=== PATIENT | female | born 1950 | race Caucasian/White ===

== ENCOUNTER 2020-11-06 14:45 | Inpatient (IN) | payer MEDICARE, MEDICAID ==
--- NOTE | 2020-11-06 15:47 | EDM.PDOC ---
ED HPI GENERAL MEDICAL PROBLEM - General Chief Complaint: Respiratory Problem Stated Complaint: sat 85% on oxygen, confusion Time Seen by Provider: 11/06/20 15:10 Source of Information: Reports: [facility] Records History Limitations: Reports: Altered Mental Status - History of Present Illness INITIAL COMMENTS - FREE TEXT/NARRATIVE: Janna is a 70 year old female who presents to ER from [facility] with anorexia, has not eaten or drank anything for the last 3 days. Staff reports oxygen sats today were in the mid 80s on 3 liters of oxygen and did not respond to increasing that. No fevers. No vomiting or diarrhea. Has been more confused. Apparently conversation has been inappropriate to the situation. No cough. Significant other reports "she hasn't been herself for days" Onset: Gradual Duration: Day(s):, Constant Location: Reports: Generalized Associated Symptoms: Reports: Confusion, Loss of Appetite, Weakness. Denies: Chest Pain, Cough, Fever/Chills, Nausea/Vomiting, Shortness of Breath - Related Data Allergies Allergy/AdvReac Type Severity Reaction Status Date / Time No Known Allergies Allergy Verified 11/06/20 15:00 Home Meds: Home Meds ARIPiprazole [Abilify] 10 mg PO DAILY 11/06/20 [History] DULoxetine HCl [Cymbalta] 60 mg PO DAILY 11/06/20 [History] Dextroamphetamine/Amphetamine [Dextroamp-Amphet ER] 10 mg PO DAILY 11/06/20 [History] Fesoterodine Fumarate [Toviaz] 4 mg PO DAILY 11/06/20 [History] Levothyroxine 75 mcg PO DAILY 11/06/20 [History] Mag Hydrox/Aluminum Hyd/Simeth [Antacid Plus Anti-Gas Liquid] 1 dose PO QID PRN 11/06/20 [History] Metoprolol Tartrate 25 mg PO BID 11/06/20 [History] Multivitamin with Iron [Multivitamins with Iron] 1 tab PO DAILY 11/06/20 [History] Pantoprazole Sodium [Protonix] 40 mg PO DAILY 11/06/20 [History] Sennosides/Docusate Sodium [Senna Plus 8.6-50 mg Tablet] 1 tab PO DAILY 11/06/20 [History] amLODIPine Besylate [Amlodipine Besylate] 10 mg PO DAILY 11/06/20 [History] lisinopriL [Lisinopril] 20 mg PO BID 11/06/20 [History] traZODone 50 mg PO BEDTIME PRN 11/06/20 [History] Past Medical History Cardiovascular History: Reports: Hypertension Gastrointestinal History: Reports: GERD Genitourinary History: Reports: Other (See Below) Other Genitourinary History: overactive bladder Psychiatric History: Reports: Depression, Schizophrenia Endocrine/Metabolic History: Reports: Hypomagnesemia, Hypothyroidism Social & Family History - Tobacco Use Tobacco Use Status *Q: Unknown Ever Used Tobacco ED ROS GENERAL - Review of Systems Review Of Systems: See Below (obtained per residential) Constitutional: Reports: Malaise, Decreased Appetite. Denies: Fever, Chills Respiratory: Reports: Other (hypoxia). Denies: Shortness of Breath Cardiovascular: Denies: Chest Pain Endocrine: Reports: Fatigue GI/Abdominal: Denies: Abdominal Pain, Nausea, Vomiting : Reports: No Symptoms Neurological: Reports: Confusion, Weakness ED EXAM, GENERAL - Physical Exam Exam: See Below Exam Limited By: Altered Mental Status General Appearance: Alert, WD/WN, No Apparent Distress Ears: Normal External Exam, Normal TMs Nose: Normal Inspection, Normal Mucosa, No Blood Throat/Mouth: Other (mucous membranes dry, lips have crusty yellowish drainage on them) Head: Normocephalic Neck: Normal Inspection, Supple, Non-Tender Respiratory/Chest: Decreased Breath Sounds Cardiovascular: Regular Rate, Rhythm GI/Abdominal: Normal Bowel Sounds, Soft, Non-Tender Extremities: Normal Inspection, No Pedal Edema Neurological: Alert, Disoriented, Other (unable to understand speech) Skin Exam: Warm, Dry Course - Vital Signs Last Recorded V/S: Last Vital Signs Temp 97.6 F 11/06/20 14:55 Pulse 87 11/06/20 14:55 Resp 16 11/06/20 14:55 BP 104/81 11/06/20 14:55 Pulse Ox 87 L 11/06/20 14:55 - Orders/Labs/Meds Orders: Active Orders 24 hr Category Date Time Status CXR [Chest 2V] [CR] Stat Exams 11/06/20 14:50 Taken COVID-19/FLU A+B [MOLEC] Stat Lab 11/06/20 15:10 Received UA W/MICROSCOPIC [URIN] Stat Lab 10/02/21 14:51 Ordered Labs: Laboratory Tests 11/06/20 11/06/20 Range/Units 15:10 15:10 WBC 8.1 (4.0-11.0) 10^3/uL RBC 4.01 (4.00-5.50) x10^6/uL Hgb 11.7 L (12.0-16.0) g/dL Hct 39.6 (37.0-47.0) % MCV 98.8 H (83.0-97.0) fL MCH 29.2 (27.0-32.0) pg MCHC 29.5 L (32.0-36.0) g/dL RDW Coeff of Barrie 14.7 (11.0-15.0) % Plt Count 170 (150-400) 10^3/uL Immature Gran % (Auto) 0.5 (0.0-4.9) % Neut % (Auto) 80.5 H (41-71) % Lymph % (Auto) 11.7 L (24-44) % [place] % (Auto) 6.1 (0-10) % Eos % (Auto) 1.0 (0-6) % Baso % (Auto) 0.2 (0-1) % Neut # (Auto) 6.51 (1.80-8.00) x10^3/uL Lymph # (Auto) 0.95 (0.60-5.00) 10^3/uL [place] # (Auto) 0.49 (0.00-1.50) 10^3/uL Eos # (Auto) 0.08 (0.00-1.50) 10^3/uL Baso # (Auto) 0.02 (0.00-0.50) 10^3/uL Immature Gran # (Auto) 0.04 (0.00-0.49) 10^3/uL Sodium 138 (136-145) mEq/L Potassium 5.2 H (3.5-5.0) mEq/L Chloride 98 (98-106) mEq/L Carbon Dioxide 37 H (21-32) mmol/L BUN 54 H (7-18) mg/dL Creatinine 3.3 H* (0.6-1.0) mg/dL Est Cr Clr Drug Dosing 14.09 mL/min Estimated GFR (MDRD) 14 L (>=60) mL/min Glucose 100 H (75-99) mg/dL Calcium 8.7 (8.4-10.1) mg/dL Total Bilirubin 0.4 (0.0-1.0) mg/dL AST 23 (15-37) U/L ALT 25 (12-78) U/L Alkaline Phosphatase 108 (46-116) U/L C-Reactive Protein 2.0 H (0.2-0.8) mg/dL Total Protein 7.5 (6.4-8.2) g/dL Albumin 3.4 (3.4-5.0) g/dL - Re-Assessments/Exams Free Text/Narrative Re-Assessment/Exam: 11/06/20 15:53 Significant other here. Relates she has "been off for the last several days". Does have history of schizophrenia and will go through phases like this. No noted signs of infection, still waiting on urine but WBC is normal, CRP 2. Creatinine is high at 3.3, BUN 54. Will admit observation and rehydrate with IV fluids and repeat labs in am. Departure - Departure Time of Disposition: 15:54 Disposition: Refer to Observation Condition: Fair Clinical Impression: DALE (acute kidney injury) - Discharge Information *PRESCRIPTION DRUG MONITORING PROGRAM REVIEWED*: No *COPY OF PRESCRIPTION DRUG MONITORING REPORT IN PATIENT TRENT: No Referrals: Min Calabrese MD [Primary Care Provider] - Sepsis Event Note (ED) - Evaluation Sepsis Screening Result: No Definite Risk - Focused Exam Vital Signs: Vital Signs Temp Pulse Resp BP Pulse Ox 11/06/20 14:55 97.6 F 87 16 104/81 87 L - Problem List & Annotations (1) DALE (acute kidney injury) SNOMED Code(s): 15439844, 37614752 Code(s): N17.9 - ACUTE KIDNEY FAILURE, UNSPECIFIED Status: Acute Priority: High Current Visit: Yes (2) History of schizophrenia SNOMED Code(s): 740649675 Code(s): Z86.59 - PERSONAL HISTORY OF OTHER MENTAL AND BEHAVIORAL DISORDERS Status: Acute Priority: High Current Visit: Yes (3) Hypoxemia SNOMED Code(s): 003899712 Code(s): R09.02 - HYPOXEMIA Status: Acute Priority: High Current Visit: Yes - Problem List Review Problem List Initiated/Reviewed/Updated: Yes - My Orders Last 24 Hours: My Active Orders 11/06/20 14:50 CXR [Chest 2V] [CR] Stat 11/06/20 14:51 UA W/MICROSCOPIC [URIN] Stat 11/06/20 15:10 COVID-19/FLU A+B [MOLEC] Stat - Assessment/Plan Admission H&P: Please use this note as an admission H&P Last 24 Hours: My Active Orders 11/06/20 14:50 CXR [Chest 2V] [CR] Stat 11/06/20 14:51 UA W/MICROSCOPIC [URIN] Stat 11/06/20 15:10 COVID-19/FLU A+B [MOLEC] Stat Assessment:: DALE Hypoxemia History of schizophrenia Plan: Admit observation. IV fluids. Repeat labs in am. Obtain urine as able.
[2020-11-06 15:48] LABS: CORONAVIRUS COVID-19 NAA NEGATIVE (NEGATIVE)
[2020-11-06] MEDS ORDERED: Ondansetron 4 MG/2 ML SDV IV PRN (16:10)
[2020-11-06] MEDS ORDERED: Acetaminophen 325 MG Tab PO PRN (16:10)
[2020-11-06] MEDS: Sodium Chloride 0.9% 1,000 ML IV SCH ×2 (17:08→23:59)
[2020-11-06] MEDS: traZODone 50 MG Tab PO PRN (19:45)
[2020-11-06] MEDS: Lisinopril 20 MG Tab PO SCH (20:17)
[2020-11-06] MEDS: Metoprolol Tartrate 25 MG Tab PO SCH (20:17)
[2020-11-07] MEDS: Levothyroxine 150 MCG Tab PO SCH (06:44)
[2020-11-07] MEDS: Pantoprazole 40 MG Tab.CR PO SCH (06:44)
[2020-11-07] MEDS: Sodium Chloride 0.9% 1,000 ML IV SCH ×2 (08:15→16:17)
[2020-11-07] MEDS: DULoxetine 30 MG Cap PO SCH (08:16)
[2020-11-07] MEDS: Metoprolol Tartrate 25 MG Tab PO SCH ×2 (08:16→19:44)
[2020-11-07] MEDS: amLODIPine 10 MG Tab PO SCH (08:17)
[2020-11-07] MEDS: Lisinopril 20 MG Tab PO SCH ×2 (08:17→19:45)
[2020-11-07] MEDS: cefTRIAXone 1 GM Vial IVPUSH SCH (10:10)
--- NOTE | 2020-11-07 12:06 | PCM.PN ---
- General Info Date of Service: 11/07/20 Admission Dx/Problem (Free Text): DALE Subjective Update: Patient more alert today. States "is fine". Sitting up for breakfast but did not eat more than a few bites. Is afebrile. Requires 6 liters of oxygen to keep sats at 90%, chronically on 3-5 at [facility]. Offers no complaints at this time. Functional Status: Reports: Pain Controlled. Denies: Tolerating Diet, Ambulating - Review of Systems General: Reports: Weakness, Fatigue, Malaise. Denies: Fever HEENT: Denies: Headaches, Sinus Congestion, Sore Throat Pulmonary: Denies: Shortness of Breath Cardiovascular: Denies: Chest Pain Gastrointestinal: Denies: Abdominal Pain, Nausea, Vomiting Neurological: Reports: Confusion, Pre-Existing Deficit Psychiatric: Reports: Confusion, Other (history of schizophrenia) - Patient Data Vitals - Most Recent: Last Vital Signs Temp 96.2 F L 11/07/20 08:00 Pulse 80 11/07/20 08:16 Resp 20 11/07/20 08:00 BP 153/59 H 11/07/20 08:17 Pulse Ox 90 L 11/07/20 08:00 Weight - Most Recent: 182 lb 8 oz I&O - Last 24 Hours: Intake & Output 11/06/20 11/07/20 11/07/20 22:59 06:59 14:59 Intake Total 1196 1000 Output Total 400 Balance 796 1000 Lab Results Last 24 Hours: Laboratory Results - last 24 hr 11/06/20 11/06/20 11/06/20 Range/Units 15:10 15:10 15:10 WBC 8.1 (4.0-11.0) 10^3/uL RBC 4.01 (4.00-5.50) x10^6/uL Hgb 11.7 L (12.0-16.0) g/dL Hct 39.6 (37.0-47.0) % MCV 98.8 H (83.0-97.0) fL MCH 29.2 (27.0-32.0) pg MCHC 29.5 L (32.0-36.0) g/dL RDW Coeff of Barrie 14.7 (11.0-15.0) % Plt Count 170 (150-400) 10^3/uL Immature Gran % (Auto) 0.5 (0.0-4.9) % Neut % (Auto) 80.5 H (41-71) % Lymph % (Auto) 11.7 L (24-44) % [place] % (Auto) 6.1 (0-10) % Eos % (Auto) 1.0 (0-6) % Baso % (Auto) 0.2 (0-1) % Neut # (Auto) 6.51 (1.80-8.00) x10^3/uL Lymph # (Auto) 0.95 (0.60-5.00) 10^3/uL [place] # (Auto) 0.49 (0.00-1.50) 10^3/uL Eos # (Auto) 0.08 (0.00-1.50) 10^3/uL Baso # (Auto) 0.02 (0.00-0.50) 10^3/uL Immature Gran # (Auto) 0.04 (0.00-0.49) 10^3/uL Sodium 138 (136-145) mEq/L Potassium 5.2 H (3.5-5.0) mEq/L Chloride 98 (98-106) mEq/L Carbon Dioxide 37 H (21-32) mmol/L BUN 54 H (7-18) mg/dL Creatinine 3.3 H* (0.6-1.0) mg/dL Est Cr Clr Drug Dosing 14.09 mL/min Estimated GFR (MDRD) 14 L (>=60) mL/min Glucose 100 H (75-99) mg/dL Calcium 8.7 (8.4-10.1) mg/dL Total Bilirubin 0.4 (0.0-1.0) mg/dL AST 23 (15-37) U/L ALT 25 (12-78) U/L Alkaline Phosphatase 108 (46-116) U/L C-Reactive Protein 2.0 H (0.2-0.8) mg/dL Total Protein 7.5 (6.4-8.2) g/dL Albumin 3.4 (3.4-5.0) g/dL Urine Color (YELLOW) Urine Appearance (CLEAR) Urine pH (4.5-8.0) Ur Specific [place] (1.003-1.020) Urine Protein (NEGATIVE) mg/dL Urine Glucose (UA) (NEGATIVE) mg/dL Urine Ketones (NEGATIVE) mg/dL Urine Occult Blood (NEGATIVE) Urine Nitrite (NEGATIVE) Urine Bilirubin (NEGATIVE) Urine Urobilinogen (0.2-1.0) EU/dL Ur Leukocyte Esterase (NEGATIVE) Urine RBC (0-5) /HPF Urine WBC (0-5) /HPF Ur Squamous Epith Cells (NOT SEEN) /HPF Urine Bacteria (NOT SEEN) /HPF Influenza Type A RNA Negative (NEGATIVE) Influenza Type B RNA Negative (NEGATIVE) SARS-CoV-2 RNA (NUBIA) Negative (NEGATIVE) 11/06/20 11/07/20 11/07/20 Range/Units 23:09 07:24 07:24 WBC 6.2 (4.0-11.0) 10^3/uL RBC 3.60 L (4.00-5.50) x10^6/uL Hgb 10.4 L (12.0-16.0) g/dL Hct 35.4 L (37.0-47.0) % MCV 98.3 H (83.0-97.0) fL MCH 28.9 (27.0-32.0) pg MCHC 29.4 L (32.0-36.0) g/dL RDW Coeff of [place] 14.7 (11.0-15.0) % Plt Count 120 L (150-400) 10^3/uL Immature Gran % (Auto) 0.7 (0.0-4.9) % Neut % (Auto) 77.0 H (41-71) % Lymph % (Auto) 14.8 L (24-44) % [place] % (Auto) 6.2 (0-10) % Eos % (Auto) 1.0 (0-6) % Baso % (Auto) 0.3 (0-1) % Neut # (Auto) 4.74 (1.80-8.00) x10^3/uL Lymph # (Auto) 0.91 (0.60-5.00) 10^3/uL [place] # (Auto) 0.38 (0.00-1.50) 10^3/uL Eos # (Auto) 0.06 (0.00-1.50) 10^3/uL Baso # (Auto) 0.02 (0.00-0.50) 10^3/uL Immature Gran # (Auto) 0.04 (0.00-0.49) 10^3/uL Sodium 139 (136-145) mEq/L Potassium 4.7 (3.5-5.0) mEq/L Chloride 101 (98-106) mEq/L Carbon Dioxide 35 H (21-32) mmol/L BUN 51 H (7-18) mg/dL Creatinine 2.4 H (0.6-1.0) mg/dL Est Cr Clr Drug Dosing 19.37 mL/min Estimated GFR (MDRD) 20 L (>=60) mL/min Glucose 101 H (75-99) mg/dL Calcium 8.1 L (8.4-10.1) mg/dL Total Bilirubin (0.0-1.0) mg/dL AST (15-37) U/L ALT (12-78) U/L Alkaline Phosphatase (46-116) U/L C-Reactive Protein 2.3 H (0.2-0.8) mg/dL Total Protein (6.4-8.2) g/dL Albumin (3.4-5.0) g/dL Urine Color Dark yellow (YELLOW) Urine Appearance Slightly cloudy (CLEAR) Urine pH 5.0 (4.5-8.0) Ur Specific [place] >= 1.030 H (1.003-1.020) Urine Protein Trace H (NEGATIVE) mg/dL Urine Glucose (UA) Negative (NEGATIVE) mg/dL Urine Ketones Trace H (NEGATIVE) mg/dL Urine Occult Blood Negative (NEGATIVE) Urine Nitrite Negative (NEGATIVE) Urine Bilirubin Small H (NEGATIVE) Urine Urobilinogen 0.2 (0.2-1.0) EU/dL Ur Leukocyte Esterase Trace H (NEGATIVE) Urine RBC 0-5 (0-5) /HPF Urine WBC 30-40 H (0-5) /HPF Ur Squamous Epith Cells Moderate H (NOT SEEN) /HPF Urine Bacteria Few H (NOT SEEN) /HPF Influenza Type A RNA (NEGATIVE) Influenza Type B RNA (NEGATIVE) SARS-CoV-2 RNA (NUBIA) (NEGATIVE) Med Orders - Current: Current Medications Acetaminophen (Acetaminophen 325 Mg Tab) 650 mg PO Q4H PRN PRN Reason: Pain (Mild 1-3)/fever Amlodipine Besylate (Amlodipine 10 Mg Tab) 10 mg PO DAILY VERONIKA Last Admin: 11/07/20 08:17 Dose: 10 mg Documented by: Ceftriaxone Sodium (Ceftriaxone 1 Gm Vial) 1 gm IVPUSH Q24H [facility] Last Admin: 11/07/20 10:10 Dose: 1 gm Documented by: Duloxetine HCl (Duloxetine 30 Mg Cap) 60 mg PO DAILY [facility] Last Admin: 11/07/20 08:16 Dose: 60 mg Documented by: Enoxaparin Sodium (Enoxaparin 30 Mg/0.3 Ml Syringe) 30 mg SUBCUT Q24H [facility] Sodium Chloride (Normal Saline) 1,000 mls @ 125 mls/hr IV ASDIRECTED [facility] Last Admin: 11/07/20 08:15 Dose: 125 mls/hr Documented by: Levothyroxine Sodium (Levothyroxine 150 Mcg Tab) 75 mcg PO ACBRK [facility] Last Admin: 11/07/20 06:44 Dose: 75 mcg Documented by: Lisinopril (Lisinopril 20 Mg Tab) 20 mg PO BID [facility] Last Admin: 11/07/20 08:17 Dose: 20 mg Documented by: Metoprolol Tartrate (Metoprolol Tartrate 25 Mg Tab) 25 mg PO BID [facility] Last Admin: 11/07/20 08:16 Dose: 25 mg Documented by: Non-Formulary Medication (Aripiprazole [Abilify]) 10 mg PO DAILY [facility] Non-Formulary Medication (Dextroamphetamine/Amphetamine [Dextroamp-Amphet Er]) 10 mg PO DAILY [facility] Ondansetron HCl (Ondansetron 4 Mg/2 Ml Sdv) 4 mg IV Q4H PRN PRN Reason: Nausea/Vomiting Pantoprazole Sodium (Pantoprazole 40 Mg Tab.Cr) 40 mg PO ACBRK [facility] Last Admin: 11/07/20 06:44 Dose: 40 mg Documented by: Senna/Docusate Sodium (Docusate Sodium/Sennosides 50-8.6 Mg Tab) 1 tab PO DAILY [facility] Last Admin: 11/07/20 08:16 Dose: 1 tab Documented by: Trazodone HCl (Trazodone 50 Mg Tab) 50 mg PO BEDTIME PRN PRN Reason: Sleep Last Admin: 11/06/20 19:45 Dose: 50 mg Documented by: - Exam Quality Assessment: Supplemental Oxygen General: Alert, Oriented (oriented to person), Cooperative HEENT: Mucous Membr. Moist/[place] Neck: Supple Lungs: Decreased Breath Sounds Cardiovascular: Regular Rate, Regular Rhythm GI/Abdominal Exam: Normal Bowel Sounds, Soft, Non-Tender Extremities: Normal Inspection, No Pedal Edema Skin: Warm, Dry Neurological: No New Focal Deficit - Patient Data Lab Results Last 24 hrs: Laboratory Results - last 24 hr 11/06/20 11/06/20 11/06/20 Range/Units 15:10 15:10 15:10 WBC 8.1 (4.0-11.0) 10^3/uL RBC 4.01 (4.00-5.50) x10^6/uL Hgb 11.7 L (12.0-16.0) g/dL Hct 39.6 (37.0-47.0) % MCV 98.8 H (83.0-97.0) fL MCH 29.2 (27.0-32.0) pg MCHC 29.5 L (32.0-36.0) g/dL RDW Coeff of [place] 14.7 (11.0-15.0) % Plt Count 170 (150-400) 10^3/uL Immature Gran % (Auto) 0.5 (0.0-4.9) % Neut % (Auto) 80.5 H (41-71) % Lymph % (Auto) 11.7 L (24-44) % [place] % (Auto) 6.1 (0-10) % Eos % (Auto) 1.0 (0-6) % Baso % (Auto) 0.2 (0-1) % Neut # (Auto) 6.51 (1.80-8.00) x10^3/uL Lymph # (Auto) 0.95 (0.60-5.00) 10^3/uL [place] # (Auto) 0.49 (0.00-1.50) 10^3/uL Eos # (Auto) 0.08 (0.00-1.50) 10^3/uL Baso # (Auto) 0.02 (0.00-0.50) 10^3/uL Immature Gran # (Auto) 0.04 (0.00-0.49) 10^3/uL Sodium 138 (136-145) mEq/L Potassium 5.2 H (3.5-5.0) mEq/L Chloride 98 (98-106) mEq/L Carbon Dioxide 37 H (21-32) mmol/L BUN 54 H (7-18) mg/dL Creatinine 3.3 H* (0.6-1.0) mg/dL Est Cr Clr Drug Dosing 14.09 mL/min Estimated GFR (MDRD) 14 L (>=60) mL/min Glucose 100 H (75-99) mg/dL Calcium 8.7 (8.4-10.1) mg/dL Total Bilirubin 0.4 (0.0-1.0) mg/dL AST 23 (15-37) U/L ALT 25 (12-78) U/L Alkaline Phosphatase 108 (46-116) U/L C-Reactive Protein 2.0 H (0.2-0.8) mg/dL Total Protein 7.5 (6.4-8.2) g/dL Albumin 3.4 (3.4-5.0) g/dL Urine Color (YELLOW) Urine Appearance (CLEAR) Urine pH (4.5-8.0) Ur Specific [place] (1.003-1.020) Urine Protein (NEGATIVE) mg/dL Urine Glucose (UA) (NEGATIVE) mg/dL Urine Ketones (NEGATIVE) mg/dL Urine Occult Blood (NEGATIVE) Urine Nitrite (NEGATIVE) Urine Bilirubin (NEGATIVE) Urine Urobilinogen (0.2-1.0) EU/dL Ur Leukocyte Esterase (NEGATIVE) Urine RBC (0-5) /HPF Urine WBC (0-5) /HPF Ur Squamous Epith Cells (NOT SEEN) /HPF Urine Bacteria (NOT SEEN) /HPF Influenza Type A RNA Negative (NEGATIVE) Influenza Type B RNA Negative (NEGATIVE) SARS-CoV-2 RNA (NUBIA) Negative (NEGATIVE) 11/06/20 11/07/20 11/07/20 Range/Units 23:09 07:24 07:24 WBC 6.2 (4.0-11.0) 10^3/uL RBC 3.60 L (4.00-5.50) x10^6/uL Hgb 10.4 L (12.0-16.0) g/dL Hct 35.4 L (37.0-47.0) % MCV 98.3 H (83.0-97.0) fL MCH 28.9 (27.0-32.0) pg MCHC 29.4 L (32.0-36.0) g/dL RDW Coeff of [place] 14.7 (11.0-15.0) % Plt Count 120 L (150-400) 10^3/uL Immature Gran % (Auto) 0.7 (0.0-4.9) % Neut % (Auto) 77.0 H (41-71) % Lymph % (Auto) 14.8 L (24-44) % [place] % (Auto) 6.2 (0-10) % Eos % (Auto) 1.0 (0-6) % Baso % (Auto) 0.3 (0-1) % Neut # (Auto) 4.74 (1.80-8.00) x10^3/uL Lymph # (Auto) 0.91 (0.60-5.00) 10^3/uL [place] # (Auto) 0.38 (0.00-1.50) 10^3/uL Eos # (Auto) 0.06 (0.00-1.50) 10^3/uL Baso # (Auto) 0.02 (0.00-0.50) 10^3/uL Immature Gran # (Auto) 0.04 (0.00-0.49) 10^3/uL Sodium 139 (136-145) mEq/L Potassium 4.7 (3.5-5.0) mEq/L Chloride 101 (98-106) mEq/L Carbon Dioxide 35 H (21-32) mmol/L BUN 51 H (7-18) mg/dL Creatinine 2.4 H (0.6-1.0) mg/dL Est Cr Clr Drug Dosing 19.37 mL/min Estimated GFR (MDRD) 20 L (>=60) mL/min Glucose 101 H (75-99) mg/dL Calcium 8.1 L (8.4-10.1) mg/dL Total Bilirubin (0.0-1.0) mg/dL AST (15-37) U/L ALT (12-78) U/L Alkaline Phosphatase (46-116) U/L C-Reactive Protein 2.3 H (0.2-0.8) mg/dL Total Protein (6.4-8.2) g/dL Albumin (3.4-5.0) g/dL Urine Color Dark yellow (YELLOW) Urine Appearance Slightly cloudy (CLEAR) Urine pH 5.0 (4.5-8.0) Ur Specific [place] >= 1.030 H (1.003-1.020) Urine Protein Trace H (NEGATIVE) mg/dL Urine Glucose (UA) Negative (NEGATIVE) mg/dL Urine Ketones Trace H (NEGATIVE) mg/dL Urine Occult Blood Negative (NEGATIVE) Urine Nitrite Negative (NEGATIVE) Urine Bilirubin Small H (NEGATIVE) Urine Urobilinogen 0.2 (0.2-1.0) EU/dL Ur Leukocyte Esterase Trace H (NEGATIVE) Urine RBC 0-5 (0-5) /HPF Urine WBC 30-40 H (0-5) /HPF Ur Squamous Epith Cells Moderate H (NOT SEEN) /HPF Urine Bacteria Few H (NOT SEEN) /HPF Influenza Type A RNA (NEGATIVE) Influenza Type B RNA (NEGATIVE) SARS-CoV-2 RNA (NUBIA) (NEGATIVE) Result Diagrams: 11/07/20 07:24 11/07/20 07:24 Sepsis Event Note - Evaluation Sepsis Screening Result: No Definite Risk - Focused Exam Vital Signs: Vital Signs Temp Pulse Pulse Resp BP BP Pulse Ox 11/07/20 08:17 153/59 H 11/07/20 08:16 80 153/59 H 11/07/20 08:00 96.2 F L 80 20 133/59 L 90 L 11/07/20 03:16 96.0 F L 77 20 110/53 L 90 L - Problem List & Annotations (1) DALE (acute kidney injury) SNOMED Code(s): 47686053, 57079689 Code(s): N17.9 - ACUTE KIDNEY FAILURE, UNSPECIFIED Status: Acute Priority: High Current Visit: Yes (2) History of schizophrenia SNOMED Code(s): 733189726 Code(s): Z86.59 - PERSONAL HISTORY OF OTHER MENTAL AND BEHAVIORAL DISORDERS Status: Acute Priority: High Current Visit: Yes (3) Hypoxemia SNOMED Code(s): 774037582 Code(s): R09.02 - HYPOXEMIA Status: Acute Priority: High Current Visit: Yes - Problem List Review Problem List Initiated/Reviewed/Updated: Yes - My Orders Last 24 Hours: My Active Orders 11/06/20 14:50 CXR [Chest 2V] [CR] Stat 11/06/20 15:57 Resuscitation Status Routine 11/06/20 16:04 traZODone 50 mg PO BEDTIME PRN 11/06/20 16:10 Acetaminophen [TylenoL] 650 mg PO Q4H PRN Ondansetron [Zofran] 4 mg IV Q4H PRN Sodium Chloride 0.9% [Normal Saline] 1,000 ml IV ASDIRECTED 11/06/20 16:10 Patient Status [ADT] Routine Cardiac Monitoring [RC] 08,1999 Oxygen Therapy [RC] 2355 Up With Assistance [RC] .PRN Vital Signs [RC] 0000,0400,0800,1200,1600,2000 11/06/20 Dinner Regular Diet [DIET] 11/06/20 20:00 Metoprolol Tartrate [Lopressor] 25 mg PO BID lisinopriL [Prinivil] 20 mg PO BID 11/07/20 07:00 Levothyroxine 75 mcg PO ACBRK Pantoprazole [ProTONIX] 40 mg PO ACBRK 11/07/20 07:24 CULTURE URINE [RM] Routine 11/07/20 08:00 ARIPiprazole [Abilify] 10 mg PO DAILY DULoxetine [Cymbalta] 60 mg PO DAILY Dextroamphetamine/Amphetamine [Dextroamp-Amphet ER] 10 mg PO DAILY Docusate Sodium/Sennosides [Senna Plus] 1 tab PO DAILY amLODIPine [Norvasc] 10 mg PO DAILY 11/07/20 10:00 cefTRIAXone [Rocephin] 1 gm IVPUSH Q24H 11/07/20 12:00 Enoxaparin [Lovenox] 30 mg SUBCUT Q24H 11/08/20 05:11 BASIC METABOLIC PANEL,BMP [CHEM] AM C-REACTIVE PROTEIN [CHEM] AM CBC WITH AUTO DIFF [HEME] AM - Assessment Assessment:: DALE UTI History of schizophrenia - Plan Plan:: Janna is more alert today. Will continue with IV fluids, monitor oral intake. Repeat labs today show creatinine to be somewhat improved to 2.4, BUN 51. WBC remains normal at 6.2, hemoglobin 10.4. CRP 2.3. UA shows bacteria and WBCs, will cover with Rocephin, await culture report. Repeat labs in am, possibly discharge back to [facility] if continues to show improvement tomorrow.
[2020-11-07] MEDS: Enoxaparin 30 MG/0.3 ML Syringe SUBCUT SCH (12:41)
[2020-11-07] MEDS: traZODone 50 MG Tab PO PRN (19:50)
[2020-11-08] MEDS: Sodium Chloride 0.9% 1,000 ML IV SCH ×2 (00:24→10:41)
[2020-11-08] MEDS: Levothyroxine 150 MCG Tab PO SCH (06:00)
[2020-11-08] MEDS: Pantoprazole 40 MG Tab.CR PO SCH (06:00)
[2020-11-08] MEDS ORDERED: DULOXETINE 60 MG PO SCH (08:30)
[2020-11-08] MEDS ORDERED: Lisinopril 20 MG Tab **PTOM PO SCH (08:30)
[2020-11-08] MEDS: ARIPIPRAZOLE 10 MG PO SCH (09:20)
[2020-11-08] MEDS: cefTRIAXone 1 GM Vial IVPUSH SCH (10:40)
[2020-11-08] MEDS: Lisinopril 20 MG Tab PO SCH ×2 (10:52→20:46)
[2020-11-08] MEDS: Metoprolol Tartrate 25 MG Tab PO SCH ×2 (10:52→20:45)
[2020-11-08] MEDS: DULoxetine 30 MG Cap PO SCH (10:52)
[2020-11-08] MEDS: amLODIPine 10 MG Tab PO SCH (10:52)
[2020-11-08] MEDS: Non-Formulary Medication 1 Each (Aripiprazole [Abilify] 10 MG Tablet) PO SCH ×2 (10:53→20:45)
[2020-11-08] MEDS ORDERED: DEXTROAMPHETAMINE PO SCH (11:45)
[2020-11-08] MEDS ORDERED: AMPHETAMINE PO SCH (11:45)
[2020-11-08] MEDS: Enoxaparin 30 MG/0.3 ML Syringe SUBCUT SCH (11:48)
--- NOTE | 2020-11-08 14:08 | PN ---
DATE: 11/08/2020 S: Mrs. Muñoz was admitted to observation I believe 2 days ago by Stephanie for hypoxia, altered mental status. She came in and had some lab which showed an acute kidney injury. Her creatinine is up to 3. She has been getting IV fluids with some degree of relief and her creatinine is down today at 1.7. She is still not completely alert, looks fatigued and tired at times. She is chronically on anywhere from 3 to 5 L of oxygen apparently, but she has been needing anywhere from 6 to 8 via nasal cannula. Blood pressure has been trending a little on the low end and apparently the family wants her a code 2 without anything further aggressive done. O: GENERAL: Her exam today shows her to be arousable and she does answer questions, although she is very lethargic with that. NEUROLOGIC: She does not show any focal neuro deficits. NECK: Her neck veins are nondistended. LUNGS: Her lung sounds are diminished in all watkins with basilar crackles suspicious for some atelectasis. CARDIAC: Her cardiac tones appear regular. ABDOMEN: Obese, soft, and nontender. EXTREMITIES: She has no peripheral edema. LABORATORY DATA: Lab work is reviewed. Her hemoglobin and white count are stable. She does have an improvement of her creatinine to 1.7 from 3.3 on admit. The rest of her lab work looks fine. She is being treated for a UTI. ASSESSMENT: 1. SCHIZOPHRENIA, CURRENTLY ON ABILIFY. 2. CHRONIC FATIGUE, CURRENTLY ON DEXTROAMPHETAMINE. 3. ACUTE KIDNEY INJURY, IMPROVED. 4. ALTERED MENTAL STATUS. 5. HYPOXIA. P: Creatinine is better. We will slow her IV fluids down. She does have definite altered mental status compared to what I have seen when I have rounded on her once in the past at [place]. Get a CT scan of her head. Her blood pressures have been trending a little low and we have been holding her blood pressure medications and will continue to do that. Unsure of the etiology of her hypoxia. Her chest x-ray shows what appears to be some fibrosis, diffuse. Does not appear to be CHF- related. We will get a proBNP, however. Britni Brock is her treating provider for her schizophrenia. We will get a consultation regarding her altered mental status. We will switch her to acute if she needs further monitoring and cares at this point. Continue to titrate down on the oxygen as tolerated. KHRIS/THEA /[id number]
[2020-11-08] MEDS ORDERED: amLODIPine 10 MG Tab PO SCH (14:17)
[2020-11-08] MEDS ORDERED: Pantoprazole 40 MG Tab.CR PO SCH (14:20)
--- NOTE | 2020-11-08 16:22 | PCM.PN.BH ---
- General Info Date of Service: 11/08/20 - Review of Systems Neurological: Reports: Confusion, Weakness - Patient Data Vitals - Most Recent: Last Vital Signs Temp 36.0 C L 11/08/20 12:00 Pulse 79 11/08/20 12:00 Resp 18 11/08/20 12:00 BP 114/46 L 11/08/20 12:00 Pulse Ox 88 L 11/08/20 12:00 - Exam General: Reports: Cooperative, Lethargic (Patient responds to touch and verbal questions. Barely opened her eyes while visiting with undersign.) Skin: Reports: Warm, Dry Neuro Exam - Mental Status: Reports: Disorientation to Place, Disorientation to Time, Slow Response to Commands Psychiatric: Reports: Normal Mood (When asked about her mood states "pretty good") - [place] I, II, III (1) History of schizophrenia SNOMED Code(s): 756010128 ICD Code: Z86.59 - PERSONAL HISTORY OF OTHER MENTAL AND BEHAVIORAL DISORDERS Status: Chronic Priority: Medium Current Visit: Yes - Plan FREE TEXT/NARRATIVE: Patient disoriented and lethargic. Laying in hospital bed during visit with undersign. She responds when spoken to and to touch. Patient barely opens eyes when asked to look at undersign. Patient reports her mood as "pretty good" but then states she is all alone. Patient believed she was in [place] when asked where she was. She denies being aware of the date, day of week or month. Patient admitted over the weekend from LTC due to increased creatinine and hypoxemia. She was also noted to be disoriented and lethargic. Patient is currently being treated for UTI and decrease noted to creatinine. Trazodone stopped today. Kaylynnign believes last dose of Adderall give in Sunday. Little information provided in chart from LTC staff on patient's behavior previous to admit. At this time I do not believe Aripiprazole or Duloxetine are contributing to lethargy or disorientation. No medication changes at this time. Recommend discontinuation of Adderall when discharged back to LTC. - Orders Orders Last 24hrs: Active Orders 24 hr Category Date Time Status Patient Status [ADT] Routine ADT 11/08/20 09:53 Active Consult to Physician [CONS] Stat Cons 11/08/20 09:51 Active Head wo Cont [CT] Routine Exams 11/08/20 09:52 Taken Aripiprazole Med 11/08/20 08:30 Active 0 mg PO DAILY DULoxetine [Cymbalta] Med 11/09/20 08:00 Active 60 mg PO DAILY Dextroamphetamine/Amphetamine [Dextroamp-Amphet ER] Med 11/08/20 11:45 Hold 10 mg PO DAILY Levothyroxine Med 11/09/20 07:00 Active 75 mcg PO ACBREAKFAST Metoprolol Tartrate [Lopressor] Med 11/08/20 14:18 Active 25 mg PO BID Pantoprazole [ProTONIX] Med 11/08/20 14:20 Active 40 mg PO ACBRK amLODIPine [Norvasc] Med 11/08/20 14:17 Active 10 mg PO DAILY lisinopriL [Prinivil] Med 11/08/20 14:17 Active 20 mg PO BID Medication Orders Acetaminophen (Acetaminophen 325 Mg Tab) 650 mg PO Q4H PRN PRN Reason: Pain (Mild 1-3)/fever Amlodipine Besylate (Amlodipine 10 Mg Tab) 10 mg PO DAILY [facility] Ceftriaxone Sodium (Ceftriaxone 1 Gm Vial) 1 gm IVPUSH Q24H [facility] Last Admin: 11/08/20 10:40 Dose: 1 gm Documented by: Admin: 11/07/20 10:10 Dose: 1 gm Documented by: FRANCISCA Duloxetine HCl (Duloxetine 30 Mg Cap) 60 mg PO DAILY [facility] Enoxaparin Sodium (Enoxaparin 30 Mg/0.3 Ml Syringe) 30 mg SUBCUT Q24H [facility] Last Admin: 11/08/20 11:48 Dose: 30 mg Documented by: Admin: 11/07/20 12:41 Dose: 30 mg Documented by: CHANDAN Levothyroxine Sodium (Levothyroxine 150 Mcg Tab) 75 mcg PO ACBREAKFAST [facility] Lisinopril (Lisinopril 20 Mg Tab) 20 mg PO BID [facility] Metoprolol Tartrate (Metoprolol Tartrate 25 Mg Tab) 25 mg PO BID [facility] Dextroamphetamine/Amphetamine [ Dextroamp-Amphet Er] 10 Mg Tab Ptom 10 mg PO DAILY [facility] Aripiprazole ( Abilify) 10 Mg Tab * *Ptom 0 mg PO DAILY [facility] Last Admin: 11/08/20 09:20 Dose: 10 mg Documented by: SURENDRA Ondansetron HCl (Ondansetron 4 Mg/2 Ml Sdv) 4 mg IV Q4H PRN PRN Reason: Nausea/Vomiting Pantoprazole Sodium (Pantoprazole 40 Mg Tab.Cr) 40 mg PO ACBRK VERONIKA Senna/Docusate Sodium (Docusate Sodium/Sennosides 50-8.6 Mg Tab) 1 tab PO DAILY VERONIKA Last Admin: 11/08/20 10:40 Dose: 1 tab Documented by: Admin: 11/07/20 08:16 Dose: 1 tab Documented by: FRANCISCA TeleHealth - TeleHealth Patient Service Facility: [facility]: [facility] Informed Consent: Telemedicine Audio/Visual Informed Consent: The risks, benefits, and alternatives to the telehealth visit were explained to the patient and the patient consented to this modality of care. The telehealth visit was carried out via a secure, web-based conferencing system. This telemedicine service was a real-time, two-way interactive video and communication between the patient and the provider. All the parties involved were identified and approved by the patient prior to the visit. Any physical exam was assisted by the patient. Unless noted otherwise, the provider was located at their usual clinic location, and the patient was at their place of residence. Patient identity was confirmed by having the patient state their name and date of . All communications with the patient (verbal, audiovisual, and written) were documented in the patients medical record per documentation standards.
[2020-11-08] MEDS: Azithromycin 500 MG in Sodium Chloride 0.9% 250 ML IV SCH (20:30)
--- NOTE | 2020-11-09 00:17 | PCM.SN.2 ---
- Free Text/Narrative Note: Janna is a 70 yo female who has been hospitalized with altered mental status a few days ago. Patient was found to have an acute kidney injury with elevated creatinine, which has significantly improved. Currently 1.7 yesterday morning. Nursing staff did call tonight with ongoing concerns of hypoxia. They state she does have history of hypoxia with chronic oxygen saturation noted in the mid to high 80's. Nursing staff do state they have tried nonrebreather, hi-flow oxygen which neither seem to help. They have noticed her oxygen saturation to be the highest while on nasal canula. Initially after repositioning of patient oxygen saturation was in the high 80's again but currently in the mid 70's. Patient has been lethargic and confused, currently being treated for UTI. After reviewing the chart, prior chest x-ray from the 06 of November did show atelectasis changes with increased density in the lower lobes, difficult to differentiate infiltrative process. Patient was given 500mg of Azithromycin earlier tonight. Patient is not answering questions appropriately, showing ongoing signs of confusion. Lung sounds were decreased but fairly clear with no crackles, rhonchi or rales noted. Respirations were equal and nonlabored. Telemetry appears to show normal sinus rhythm. Elected to proceed with repeat chest x-ray, ABG's, BMP and ProBNP tonight. ABG's did show ph of 7.01, PCO2 of 127, PO2 of 48, HCO3 31.8, and oxygen saturation of 58%. Chest x-ray did show consolidation. ProBNP is elevated to 3278 tonight, prior was 2195 yesterday morning. I did review patient's chart, which appears to be under two different accounts. Prior ProBNP was 231 on the 17 of October. Will give 40mg of IV Lasix now. Creatinine is stable at 1.6 this evening, prior again was 1.7 yesterday morning. On the 17 of October it was 1.3. Nursing staff have been in touch with patient's children this evening. Both daughter and son are aware of critical state and patient being a DNR status. Will closely monitor this evening as patient wishes are to refrain from intubation or any life saving measures. Family to be contacted with any further changes. Time Documentation - Time Based Documentation Time Includes the Following: Time Spent [id number] with the Patient, Eletronic Documentation, Records Reviewed/Chart Prep - Encounter Timing Total Time of Encounter (Minutes): 45
[2020-11-09 00:32] LABS: O2 DELIVERY DEVICE NASAL CANNULA
[2020-11-09 00:38] LABS: BASE EXCESS ARTERIAL 0.6 (-2.0-3.0); BICARBONATE,ARTERIAL 31.8 mm/L (22.0-26.0); O2 FLOW RATE 12.5; O2 SATURATION ARTERIAL 58 % (95-98); PCO2 ARTERIAL 127 mm/Hg0 (35-45); PO2 ARTERIAL 48 mm/Hg (80-100)
[2020-11-09] MEDS ORDERED: Furosemide 40 MG/4 ML VIAL IVPUSH ONE (00:41)
[2020-11-09] MEDS ORDERED: Levothyroxine 150 MCG Tab PO SCH (07:00)
[2020-11-09] MEDS ORDERED: DULoxetine 30 MG Cap PO SCH (08:00)
[2020-11-09] MEDS ORDERED: Albuterol/Ipratropium 3.0-0.5 MG/3 ML Neb Soln NEB PRN (08:07)
[2020-11-09] MEDS: cefTRIAXone 1 GM Vial IVPUSH SCH (10:04)
[2020-11-09] MEDS: Lisinopril 20 MG Tab PO SCH (11:02)
[2020-11-09] MEDS: ARIPIPRAZOLE 10 MG PO SCH (11:02)
[2020-11-09] MEDS: Metoprolol Tartrate 25 MG Tab PO SCH (11:02)
[2020-11-09] MEDS ORDERED: Furosemide 40 MG/4 ML VIAL IVPUSH SCH (12:00)
[2020-11-09] MEDS: Enoxaparin 30 MG/0.3 ML Syringe SUBCUT SCH (12:20)
--- NOTE | 2020-11-09 12:56 | PN ---
DATE: 11/09/2020 S: Janna is seen today for routine progress note. She did have worsening of her oxygen levels last night and more hypoxic. She was put on a non-rebreather. Milton Ugalde came and evaluated her, repeated a chest x-ray which did show some possible pleural effusions. Her proBNP was up slightly from 2200 I believe to 3100 and there is a question of possible pneumonic process there. She has been holding her sats now anywhere from 85% and 90% on a non-rebreather. Family are present and they do not want anything further aggressive done. I had a long discussion with significant other who is present in the room at this time. O: GENERAL: The patient is arousable, but less so than yesterday, almost more obtunded. She does not answer questions today. Her neck veins do not appear distended. LUNGS: Lung sounds continue to have bibasilar rales and crackles and less air movement than yesterday. No audible wheezes in the apices. CARDIAC: Tones are regular. ABDOMEN: Soft. EXTREMITIES: Lower extremities have no edema. LABORATORY DATA: Lab work is reviewed today and shows her creatinine have remained stable, actually down to 1.6. Her proBNP went up to 3272. ABG was done this morning and at that time it registered her pH at 7.01 with a pO2 of 48, and a pCO2 of 127. Questionable source on that. This was done at approximately midnight last night. Her chest x-ray which was repeated as well as reviewed. It is a portable with lesser quality. She continues to have possible vascular congestion. Once again, the bases look almost fibrotic or atelectatic. It is hard to differentiate how much is failure, how much could be infiltrate. ASSESSMENT: 1. HYPOXIA, QUESTIONABLE PNEUMONIA WITH SUPERIMPOSED CONGESTIVE HEART FAILURE. 2. ACUTE KIDNEY INJURY, IMPROVED. 3. SCHIZOPHRENIA. 4. CHRONIC FATIGUE. P: Overall, the patient's clinical presentation has declined. Family do not want aggressive measures taken. We have added Zithromax to the Rocephin to cover her for possible pneumonia. Yesterday, I did stop her IV fluids and she looked like she was starting to have a better day even though her proBNP was slightly up at 2200. It is up over 3000 now today, and we will put her on b.i.d. dose of IV Lasix even in the face of her prior acute kidney injury. Most of her medications that could cause her to be sedated, which is our suspect on admit have been stopped other than her Abilify. We did stop her trazodone and we will continue to monitor her closely. KHRIS/THEA /[id number]
[2020-11-09] MEDS: Azithromycin 500 MG in Sodium Chloride 0.9% 250 ML IV SCH (19:34)
--- NOTE | 2020-11-10 06:48 | PN ---
DATE: 11/09/2020 Family conference was held at 4 p.m. today with the significant other, sister, and daughter regarding patient's DNR status. I was told yesterday and today family did not want anything aggressive done including any overaggressive measures. The patient is a DNR and has made it clear apparently in the past that she wanted no intubation or ventilation, cardiac medications, or resuscitation. There are some family members who dispute this and the son who is the [id number] has not been present. We did get documentation from the son to verify that he is the [id number]. We are waiting on his wishes to determine further cares. The patient has slowly declined again today with her being on a non-rebreather and not maintaining her sats. Her blood pressures are now dropping. She is around 90/50 and her sats remain at 84% to 85%. As of now, we still have a DNR order. I had a long phone conversation with the 3 significant family members present along with 2 on the phone who raised many questions about transfer, more aggressive ventilation including intubation. At this time, I have nothing supporting our ability to do that until the son would voice his desire for that. The family members all understand. Conversation was approximately half hour in length with nursing staff present. At this time, the patient will remain on a DNR status with IV antibiotics and Lasix given and oxygen through her non-rebreather. KHRIS/THEA /[id number]
--- NOTE | 2020-11-10 10:21 | DISCH ---
DATE OF : 11/09/2020. ADMISSION DIAGNOSES: 1. Acute kidney injury, likely secondary to dehydration. 2. Hypoxia. 3. Schizophrenia. 4. Dementia. DISCHARGE DIAGNOSIS: 1. ACUTE EXACERBATION OF CHRONIC RENAL FAILURE, IMPROVED. 2. PNEUMONIA. 3. CONGESTIVE HEART FAILURE. 4. CHRONIC HYPOXIA WITH SUPERIMPOSED PNEUMONIA AND HEART FAILURE. 5. RESPIRATORY FAILURE. 6. SCHIZOPHRENIA. HISTORY: The patient is a fragile 70-year-old female who has [facility]. She presented to [facility] with worsening fatigue and lethargy with some confusion. At that time, she had an elevated creatinine of 3.3. She had not been eating or drinking in weeks. [facility] admitted her for IV fluids. She does use chronic O2 at 5 to 6 L per nasal cannula with an unknown diagnoses as to why. It sounds like she may have some based on her x-rays, maybe some pulmonary fibrosis. HOSPITAL COURSE: The patient was admitted, given IV fluids for 2 days and her creatinine rebounded. She had a little bit of improvement by day 2, where she is was little bit more alert and oriented. She was able to sit up one day and do some eating. On the night of her 3rd day, she had acute drop in her sats, got down to low 70s. Milton Ugalde evaluated, looked like she had possible pneumonia associated with pleural effusion. Her proBNP was up, so we put her on IV antibiotics and added Zithromax to already course of Rocephin for possible UTI. Chest x-ray showed again a lot of atelectasis and possible fibrosis. She had a slightly elevated proBNP. Family was consulted about the dire situation given her significant hypoxia. She was a DNR status and did not want intubation or aggressive maneuvers. She did start to drop her blood pressures as well and they wanted no pressors given. She was kept on IV Lasix, both IV Rocephin and Zithromax and clinically just continued to have a slow decline. Multiple family members were involved in decisions. to speak to the power of corporate attorney who was one of her sons, but her sister and daughter along with significant other were present and wanted nothing more aggressive done. We never got any documentation to say otherwise. The patient did of respiratory failure in the evening on 11/09 with family at bedside in a comfortable manner. COMPLICATIONS: During stay were none. CONSULTATIONS: None. DISPOSITION: home notified. KHRIS/THEA /[id number]
== END 2020-11-09 23:30 | disposition expired | DRG 682 ==
LOC: CC.ED 14:45 → CC.MS 15:57 → UNDOADMOB 16:05 → CC.MS 16:05 → OBSVTOIN 11-08 13:03
PROVIDERS: ADMIT Physician Assistant Medical; ATTEND Family Medicine
DX: N17.9 Acute kidney failure, unspecified (principal); R09.02 Hypoxemia; Z86.59 Personal history of other mental and behavioral disorders; I10 Essential (primary) hypertension; J18.9 Pneumonia, unspecified organism; I50.31 Acute diastolic (congestive) heart failure; J96.91 Respiratory failure, unspecified with hypoxia; I13.0 Hypertensive heart and chronic kidney disease with heart failure and stage 1 through stage 4 chronic kidney disease, or unspecified chronic kidney disease; N39.0 Urinary tract infection, site not specified; J98.11 Atelectasis; N18.9 Chronic kidney disease, unspecified; E86.0 Dehydration; F20.9 Schizophrenia, unspecified; F03.90 Unspecified dementia, unspecified severity, without behavioral disturbance, psychotic disturbance, mood disturbance, and anxiety; K21.9 Gastro-esophageal reflux disease without esophagitis; N32.81 Overactive bladder; E83.42 Hypomagnesemia; E03.9 Hypothyroidism, unspecified; Z66 Do not resuscitate; J84.10 Pulmonary fibrosis, unspecified; Z79.890 Hormone replacement therapy; Z79.899 Other long term (current) drug therapy; Z99.81 Dependence on supplemental oxygen; Z20.822 Contact with and (suspected) exposure to COVID-19; R53.81 Other malaise
CPT/HCPCS: 0240U; 36415; 36600; 51702; 70450; 71045; 71046; 80048; 80053; 81001; 82803; 83880; 85025; 85379; 86140; 87086; 94640; 96361; 96372; 96374; 96376; 99220; 99225; 99285-25; A9270-GY; G0378; J0456; J0696; J1650; J1940; J7030; J7050; J7620-GY